=== PATIENT | female | born 1975 | race Caucasian/White ===

== ENCOUNTER → 2016-08-31 | Outpatient (CLI) | payer MEDICAID | LOC: CIMAGING 09:10 | PROVIDERS: ATTEND Family Medicine | DX: R11.2 Nausea with vomiting, unspecified (principal); R19.7 Diarrhea, unspecified; R93.3 Abnormal findings on diagnostic imaging of other parts of digestive tract; Z98.84 Bariatric surgery status | CPT/HCPCS: 74022-PO; 80053-PO; 82150-PO; 85025-PO ==

== ENCOUNTER 2017-04-12 14:34 | Emergency (ER) | payer MEDICAID ==
[2017-04-12 14:47] VITALS: BP 112/79; PULSE 77; RESP 18; TEMP 98.2; O2SAT 95
[2017-04-12] MEDS ORDERED: DIAZEPAM 5 MG TAB PO ONE (14:51)
--- NOTE | 2017-04-12 14:54 | EDPHY ---
H & P Time Seen by Provider: 04/12/17 14:38 HPI/ROS: 42-year-old female presents complaining of left lower back pain that began this morning. No fevers no chills no nausea vomiting diarrhea . No loss of bowel or bladder control. No numbness or tingling in extremities. No dysuria ROS as per hpi gen no fever, chills, fatigue ENT no sore throat, no ear pain, no uri sx cardiac, no chest pain, no edema resp no cough, no sob gi no nausea, no vomiting, no abdominal pain, no diarrhea no dysuria no hematuria no vaginal discharge MSK positive left lumbar myalgia, no joint pain, no falls no recent injuries Neuro no headache, no paresthesias no seizures Psych no HI no SI Heme no easy bleeding, no easy bruising Endocrine no polyuria no polydipsia Past Medical/Surgical History: Migraines Obesity Chronic back pain Smoking Status: Former smoker Physical Exam: 42-year-old female alert and oriented in moderate distress secondary to left lower back pain, worse with movement Vital signs stable, afebrile, nontoxic appearance Patient was able to ambulate to the room without difficulty Atraumatic normocephalic Extraocular muscles intact, anicteric Neck supple no adenopathy, Lungs clear to auscultation bilaterally, Heart regular rate and rhythm without murmur rub or gallop Abdomen obese bowel sounds present soft nontender Back no step-offs, no rash no ecchymoses no CVA tenderness positive left lumbar paraspinal tenderness, no midline spinal tenderness Negative left leg straight leg raise Extremities no cyanosis clubbing or edema DTRs intact, sensation intact Constitutional: Initial Vital Signs Temperature (C) 36.8 C 04/12/17 14:44 Heart Rate 77 04/12/17 14:44 Respiratory Rate 18 04/12/17 14:44 Blood Pressure 112/79 04/12/17 14:44 O2 Sat (%) 95 04/12/17 14:44 O2 Delivery Mode Room Air Allergies/Adverse Reactions: eletriptan HBr [From Relpax] Allergy (Severe, Verified 04/12/17 14:44) CHEST TIGHTNESS.NERVOUS naproxen [From Naprosyn] Allergy (Severe, Verified 04/12/17 14:44) BODY TREMMORS topiramate [From Topamax] Allergy (Severe, Verified 04/12/17 14:44) CHEST TIGHTNESS/NERVOUS latex [Latex] Allergy (Mild, Verified 04/12/17 14:44) Rash rizatriptan benzoate [From Maxalt] Allergy (Verified 04/12/17 14:44) sumatriptan [From Imitrex] Allergy (Verified 04/12/17 14:44) sumatriptan succinate [From Imitrex] Allergy (Verified 04/12/17 14:44) Home Medications: Medication Instructions Recorded Codeine/Butalbital/ASA/Caffein 1 - 2 each PO Q4 PRN 04/24/13 [Ascomp with Codeine Capsule] Multivitamins [Multivitamin (*)] 1 each PO DAILY 04/24/13 Sertraline HCl [Zoloft 100mg (*)] 100 mg PO BID 04/24/13 buPROPion SR [Wellbutrin 150mg SR 150 mg PO BID 04/24/13 (*)] Cholecalciferol (Vitamin D3) 5,000 unit PO DAILY 05/17/13 [Dialyvite Vitamin D] Amitriptyline HCl [Elavil] 25 mg PO HS 02/17/14 Ibuprofen [Motrin (*)] 800 mg PO Q8 PRN 02/17/14 Ondansetron HCl [Zofran] 4 mg PO TID PRN 02/17/14 QUEtiapine FUMARATE [Seroquel 25 25 mg PO HS 02/17/14 mg (*)] valACYclovir [Valtrex (*)] 500 mg PO BID PRN 02/17/14 acetaZOLAMIDE [Diamox] 1,000 mg PO BID #60 tab 03/05/14 Calcium Carbonate [Tums 500MG (*)] 500 mg PO DAILY PRN 03/31/14 LORazepam [Ativan (*)] 0.5 - 1 mg PO Q8 PRN #30 tab 04/06/14 clonazePAM [Klonopin (*)] 0.5 mg PO BID PRN #60 tab 04/06/14 Cyclobenzaprine [Cyclobenzaprine 5 mg PO DAILY PRN 05/04/14 HCl] oxyCODONE CR [Oxycontin] 10 mg PO BID PRN 05/04/14 Frovatriptan Succinate [Frova] 2.5 mg PO DAILY PRN 05/25/14 HYDROmorphone HCL [Dilaudid 2 mg 2 - 4 mg PO Q4 PRN #10 tab 05/27/14 (*)] Dicyclomine [Bentyl 10 MG (RX)] 10 - 20 mg PO QID PRN #30 cap 08/13/14 Ondansetron Odt [Zofran Odt] 4 - 8 mg PO Q4PRN PRN #4 tab 08/13/14 Diazepam [Valium 5 MG (*)] 5 mg PO TID PRN #15 tab 04/12/17 Medical Decision Making ED Course/Re-evaluation: Patient seen and evaluated for left lumbar back pain Impression Lumbar back strain, left lumbar muscle spasm Plan Diazepam 10 mg p.o. now Discharge home with diazepam 5 mg p.o. three times daily p.r.n. muscle spasm Follow-up with PCP next week. Return emergently if you developed fever, severe pain or weakness and/or difficulty urinating Differential Diagnosis: Differential diagnosis considered but not limited to: Urinary tract infection, pyelonephritis, disc herniation, muscle spasm, muscle strain, acute on chronic low back pain - Data Points Medications Given: Discontinued Medications Diazepam (Valium) 10 mg PO EDNOW ONE Stop: 04/12/17 14:52 Last Admin: 04/12/17 14:55 Dose: 10 mg Departure - Departure Disposition: Home, Routine, Self-Care Clinical Impression: Left lumbar pain Condition: Good Instructions: Low Back Strain (ED), Acute Low Back Pain (ED) Referrals: Sherice May MD [Primary Care Provider] - As per Instructions Prescriptions: Diazepam [Valium 5 MG (*)] 5 mg PO TID PRN #15 tab PRN Reason: Spasms
== END 2017-04-12 15:11 | disposition home or self-care (01) ==
LOC: CED 14:34
DX: M54.5 Low back pain (principal); Z87.891 Personal history of nicotine dependence; Z91.040 Latex allergy status

== ENCOUNTER 2017-08-28 12:04 | Emergency (ER) | payer MEDICAID ==
[2017-08-28] MEDS ORDERED: NS 1,000 ML IV ONE (12:44)
[2017-08-28] MEDS ORDERED: ONDANSETRON 4 MG/2 ML VIAL IVP ONE (12:45)
[2017-08-28] MEDS ORDERED: ALBUTEROL 3 ML DEYVIAL IH ONE (12:46)
[2017-08-28 13:08] LABS: PLATELET COUNT 189 10^3/uL (150-400)
--- NOTE | 2017-08-28 13:33 | EDPHY ---
H & P Time Seen by Provider: 08/28/17 12:30 HPI/ROS: This patient complains of cough productive of green sputum this started 3 days prior to arrival. She reports mild dyspnea associated with this. She was seen by her primary care physician yesterday and prescribed Robitussin with codeine cough suppressant for diagnosis of URI with cough. The patient complains of associated diarrhea for 2 weeks described as for or so episodes a day of loose stools and her symptoms are also company by onset of vomiting that is independent of her coughing over the past 48 hr. She reports that she is unable to tolerate p.o. Fluids now other than occasional small amounts of water and no p. O. Food intake over the past 24 hr. She has associated subjective fevers. She reports that she had a negative influenza swab but her primary care physician's office ROS: Subjective fevers and fatigue. No other constitutional symptoms HEENT: Positive nasal congestion. No sore throat. No ear pain. Neuro: No generalized headache. No confusion. No focal symptoms Pulmonary: No hemoptysis. No pleuritic pain. No respiratory distress. She feels there is rattle in her chest. Cardiovascular: No heart palpitations. No leg swelling or pain. GI: No abdominal pain. No hematemesis. No bloody stools. : No urinary symptoms Integumentary: No rash Complete review of symptoms is otherwise negative. Past Medical/Surgical History: Notable for: Pneumothorax Pneumonia Exercise-induced asthma Social History: She denies drug use. Smoking Status: Former smoker Physical Exam: General Appearance: Alert, no distress. Eyes: Pupils equal and round no pallor or injection. ENT, Mouth: Mucous membranes moist. Hoarse voice. Respiratory: Mild expiratory wheeze bilaterally. No rales or rhonchi appreciated. Cardiovascular: Regular rate and rhythm. No murmur gallop rub. Gastrointestinal: Abdomen is soft and nontender, no masses, bowel sounds normal. Neurological: GCS 15. Skin: Warm and dry, no rashes. Musculoskeletal: Neck is supple nontender. Extremities are symmetrical, full range of motion. Psychiatric: Flat affect. Otherwise normal DIFFERENTIAL DIAGNOSIS: After history and physical exam differential diagnosis was considered for laryngitis, bronchitis, pneumonia, viral gastroenteritis, Constitutional: Initial Vital Signs Temperature (C) 36.9 C 08/28/17 12:13 Heart Rate 60 08/28/17 12:13 Respiratory Rate 18 05/15/18 12:13 Blood Pressure 122/81 H 08/28/17 12:13 O2 Sat (%) 94 08/28/17 12:13 O2 Delivery Mode Room Air Allergies/Adverse Reactions: eletriptan HBr [From Relpax] Allergy (Severe, Verified 08/28/17 12:12) CHEST TIGHTNESS.NERVOUS naproxen [From Naprosyn] Allergy (Severe, Verified 08/28/17 12:12) BODY TREMMORS topiramate [From Topamax] Allergy (Severe, Verified 08/28/17 12:12) CHEST TIGHTNESS/NERVOUS latex [Latex] Allergy (Mild, Verified 08/28/17 12:12) Rash rizatriptan benzoate [From Maxalt] Allergy (Verified 08/28/17 12:12) sumatriptan [From Imitrex] Allergy (Verified 08/28/17 12:12) sumatriptan succinate [From Imitrex] Allergy (Verified 08/28/17 12:12) Home Medications: Medication Instructions Recorded Codeine/Butalbital/ASA/Caffein 1 - 2 each PO Q4 PRN 04/24/13 [Ascomp with Codeine Capsule] Multivitamins [Multivitamin (*)] 1 each PO DAILY 04/24/13 Sertraline HCl [Zoloft 100mg (*)] 100 mg PO BID 04/24/13 buPROPion SR [Wellbutrin 150mg SR 150 mg PO BID 04/24/13 (*)] Cholecalciferol (Vitamin D3) 5,000 unit PO DAILY 05/17/13 [Dialyvite Vitamin D] Amitriptyline HCl [Elavil] 25 mg PO HS 02/17/14 Ibuprofen [Motrin (*)] 800 mg PO Q8 PRN 02/17/14 Ondansetron HCl [Zofran] 4 mg PO TID PRN 02/17/14 QUEtiapine FUMARATE [Seroquel 25 25 mg PO HS 02/17/14 mg (*)] valACYclovir [Valtrex (*)] 500 mg PO BID PRN 02/17/14 acetaZOLAMIDE [Diamox] 1,000 mg PO BID #60 tab 03/05/14 Calcium Carbonate [Tums 500MG (*)] 500 mg PO DAILY PRN 03/31/14 LORazepam [Ativan (*)] 0.5 - 1 mg PO Q8 PRN #30 tab 04/06/14 clonazePAM [Klonopin (*)] 0.5 mg PO BID PRN #60 tab 04/06/14 Cyclobenzaprine [Cyclobenzaprine 5 mg PO DAILY PRN 05/04/14 HCl] oxyCODONE CR [Oxycontin] 10 mg PO BID PRN 05/04/14 Frovatriptan Succinate [Frova] 2.5 mg PO DAILY PRN 05/25/14 HYDROmorphone HCL [Dilaudid 2 mg 2 - 4 mg PO Q4 PRN #10 tab 05/27/14 (*)] Dicyclomine [Bentyl 10 MG (RX)] 10 - 20 mg PO QID PRN #30 cap 08/13/14 Ondansetron Odt [Zofran Odt] 4 - 8 mg PO Q4PRN PRN #4 tab 08/13/14 Diazepam [Valium 5 MG (*)] 5 mg PO TID PRN #15 tab 04/12/17 Albuterol Hfa Anes Only [Proair 2 puffs IH Q4 PRN #1 mdi 08/28/17 Hfa Icu (*)] Fluticasone Hfa 220 Mcg [Flovent 2 puffs IH DAILY #1 mdi 08/28/17 220 MCG Hfa MDI (*)] Ondansetron Odt [Zofran Odt] 4 - 8 mg PO Q4PRN PRN #4 tab 08/28/17 Promethazine HCl [Phenergan 25mg 25 mg PO Q6 PRN #4 tab 08/28/17 (*)] MDM/Departure - MDM Diagnostics: Two view chest x-ray: Right TECHNICAL SUPPORT TECHNICIAN shunt without acute cardiopulmonary abnormalities by my interpretation CBC is normal I-STAT chemistries with potassium 3.2 otherwise normal Imaging Results: Two view chest x-ray: TECHNICAL SUPPORT TECHNICIAN shunt present. No other acute abnormalities by my interpretation. I compared this to a prior x-ray with similar findings from 2016 Imaging: I viewed and interpreted images myself Medications Given: Discontinued Medications Albuterol (Proventil Neb) 3 ml IH EDNOW ONE Stop: 08/28/17 12:47 Last Admin: 08/28/17 13:07 Dose: 3 ml Sodium Chloride (Ns) 1,000 mls @ 0 mls/hr IV ONCE ONE; Wide Open PRN Reason: Protocol Stop: 08/28/17 12:45 Last Admin: 08/28/17 13:07 Dose: 1,000 mls Metoclopramide HCl (Reglan Injection) 5 mg IVP EDNOW ONE Stop: 08/28/17 14:08 Last Admin: 08/28/17 14:15 Dose: 5 mg Ondansetron HCl (Zofran) 4 mg IVP EDNOW ONE Stop: 08/28/17 12:46 Last Admin: 08/28/17 13:07 Dose: 4 mg ED Course/Re-evaluation: Course: Albuterol neb with improvement in symptoms-decreased frequency of cough and resolution of wheezing. Zofran IV with incomplete relief of nausea followed by Reglan with further relief. Patient then tolerated p.o. Intake without emesis. Discussion: Patient presents with findings consistent with viral URI with mild reactive airway disease or asthma versus viral bronchitis with wheezing complicated by vomiting. She improved with treatment. We ruled out pneumonia. No other red flag findings. Patient will proceed home with albuterol MDI, Flovent and Zofran IV Ts with Phenergan suppositories as a backup for any nausea or vomiting unrelieved by the Zofran. She understands the need to return emergency department should she develop any significant worsening of symptoms despite treatment plan. - Depart Disposition: Home, Routine, Self-Care Clinical Impression: Viral bronchitis, Viral laryngitis, Vomiting Condition: Good Instructions: Asthma (ED), Laryngitis (ED), Acute Nausea and Vomiting (ED) Additional Instructions: Diagnosis: 1. Viral laryngitis, viral bronchitis 2. History of asthma 3. Vomiting Plan: Drink plenty fluids Humidifier The Zofran under the tongue or Phenergan suppository for nausea vomiting if needed Albuterol inhaler with spacer for cough, wheeze or shortness of breath Flovent steroid inhaler in addition as prescribed Follow up with primary care physician for any ongoing symptoms Return to the ED for any significant worsening of her symptoms despite treatment plan Prescriptions: Albuterol Hfa Anes Only [Proair Hfa Icu (*)] 2 puffs IH Q4 PRN #1 mdi PRN Reason: Wheezing Fluticasone Hfa 220 Mcg [Flovent 220 MCG Hfa MDI (*)] 2 puffs IH DAILY #1 mdi Ondansetron Odt [Zofran Odt] 4 - 8 mg PO Q4PRN PRN #4 tab PRN Reason: Vomiting Promethazine HCl [Phenergan 25mg (*)] 25 mg PO Q6 PRN #4 tab PRN Reason: vomiting Referrals: Adan Hernandez DO [Primary Care Provider] - As per Instructions
[2017-08-28] MEDS ORDERED: METOCLOPRAMIDE 10 MG/2 ML VIAL IVP ONE (14:07)
[2017-08-28 14:17] VITALS: BP 113/58
== END 2017-08-28 14:40 | disposition home or self-care (01) ==
LOC: SUPCPDRO 12:04 → CED 12:04
DX: J20.8 Acute bronchitis due to other specified organisms (principal); B97.89 Other viral agents as the cause of diseases classified elsewhere; J04.0 Acute laryngitis; R11.10 Vomiting, unspecified; J45.909 Unspecified asthma, uncomplicated; E86.9 Volume depletion, unspecified; Z87.891 Personal history of nicotine dependence; Z91.040 Latex allergy status
CPT/HCPCS: 71046-PO; 82947-QW; 85025-PO; 96374; J2405; J2765; J7613

== ENCOUNTER 2017-10-03 21:25 | Emergency (ER) | payer MEDICAID ==
[2017-10-03] MEDS ORDERED: ONDANSETRON 4 MG/2 ML VIAL ONE (21:58)
[2017-10-03] MEDS ORDERED: NS 1,000 ML IV ONE ×2 (21:59→22:07)
[2017-10-03] MEDS ORDERED: ONDANSETRON 4 MG/2 ML VIAL IVP ONE (21:59)
--- NOTE | 2017-10-03 22:10 | EDPHY ---
H & P Stated Complaint: abdominal pain,vomiting for 3 days,dizziness Time Seen by Provider: 10/03/17 21:30 HPI/ROS: 42 yo f presents c/o diffuse abdominal pain associated with nausea, vomiting , saw her pcp this afternoon who felt this maybe anxiety and added seroquel to her current medications, pt states she woke up an hour ago in vomit, diarrhea. She had taken dilaudid and klonopin this afternoon. Pt with hx of multiple prior abdominal surgeries including cholecystectomy, tubal ligation, gastric bypass. Review of systems As per HPI General no fever no chills no weakness HEENT no eye pain no eye discharge. No eye redness, no sore throat Respiratory no cough, no shortness of breath Cardiac no chest pain, no peripheral edema GI positive abdominal pain positive nausea positive vomiting no flank pain, no hematuria, no dysuria Musculoskeletal no myalgias, no joint pain Heme no easy bruising, no easy bleeding Endo no polyuria, no polydipsia Skin no rashes, no pruritus Neuro no syncope, no dizziness, no headaches Psych is no suicidal ideation, no homicidal ideation Source: Patient Exam Limitations: No limitations - Personal History LMP (Females 10-55): Post Menopausal Current Tetanus Diphtheria and Acellular Pertussis (TDAP): Yes Tetanus Vaccine Date: 2007 - Medical/Surgical History Hx Asthma: Yes Hx Chronic Respiratory Disease: No Hx Diabetes: No Hx Cardiac Disease: No Hx Renal Disease: Yes Hx Cirrhosis: No Hx Alcoholism: No Hx HIV/AIDS: No Hx Splenectomy or Spleen Trauma: No Other PMH: Pseudotumor cerebri, Migraine, uterine ablation, depression, anxiety , , kaushal, tubal ligation, gastric bypass, mass left adrenal - Family History Significant Family History: No pertinent family hx - Social History Smoking Status: Former smoker Alcohol Use: None Drug Use: None - Physical Exam Exam: 42-year-old female alert and oriented no acute distress nontoxic appearance, afebrile HEENT atraumatic normocephalic, extraocular muscles intact, anicteric Oropharynx negative for erythema negative exudate, tolerating her own secretions , mucosa dry Neck supple no meningismus Lungs clear to auscultation bilaterally Heart regular rate and rhythm without murmur rub or gallop Abdomen nondistended bowel sounds quiet, soft no guarding no rebound Back no CVA tenderness, no step-offs, no spinal tenderness Extremities no cyanosis clubbing or edema Neuro alert and oriented, no focal deficits Constitutional: Initial Vital Signs Temperature (C) 36.3 C 10/03/17 21:41 Heart Rate 119 H 18 21:41 Respiratory Rate 14 18 21:41 Blood Pressure 115/69 10/03/17 21:41 O2 Sat (%) 93 18 21:41 O2 Delivery Mode Room Air O2 (L/minute) 2 Allergies/Adverse Reactions: eletriptan HBr [From Relpax] Allergy (Severe, Verified 10/03/17 21:36) CHEST TIGHTNESS.NERVOUS naproxen [From Naprosyn] Allergy (Severe, Verified 10/03/17 21:36) BODY TREMMORS topiramate [From Topamax] Allergy (Severe, Verified 10/03/17 21:36) CHEST TIGHTNESS/NERVOUS latex [Latex] Allergy (Mild, Verified 10/03/17 21:36) Rash rizatriptan benzoate [From Maxalt] Allergy (Verified 10/03/17 21:36) sumatriptan [From Imitrex] Allergy (Verified 10/03/17 21:36) sumatriptan succinate [From Imitrex] Allergy (Verified 10/03/17 21:36) Home Medications: Medication Instructions Recorded Codeine/Butalbital/ASA/Caffein 1 - 2 each PO Q4 PRN 04/24/13 [Ascomp with Codeine Capsule] Sertraline HCl [Zoloft 100mg (*)] 100 mg PO BID 04/24/13 buPROPion SR [Wellbutrin 150mg SR 150 mg PO BID 04/24/13 (*)] Ibuprofen [Motrin (*)] 800 mg PO Q8 PRN 02/17/14 QUEtiapine FUMARATE [Seroquel 25 25 mg PO HS 02/17/14 mg (*)] acetaZOLAMIDE [Diamox] 1,000 mg PO BID #60 tab 03/05/14 clonazePAM [Klonopin (*)] 0.5 mg PO BID PRN #60 tab 04/06/14 HYDROmorphone HCL [Dilaudid 2 mg 2 - 4 mg PO Q4 PRN #10 tab 05/27/14 (*)] Dicyclomine [Bentyl 10 MG (RX)] 10 - 20 mg PO QID PRN #30 cap 08/13/14 Ondansetron Odt [Zofran Odt] 4 - 8 mg PO Q4PRN PRN #4 tab 08/13/14 Albuterol Hfa Anes Only [Proair 2 puffs IH Q4 PRN #1 mdi 08/28/17 Hfa Icu (*)] Fluticasone Hfa 220 Mcg [Flovent 2 puffs IH DAILY #1 mdi 08/28/17 220 MCG Hfa MDI (*)] Ondansetron Odt [Zofran Odt] 4 - 8 mg PO Q4PRN PRN #4 tab 08/28/17 Promethazine HCl [Phenergan 25mg 25 mg PO Q6 PRN #4 tab 08/28/17 (*)] Medical Decision Making ED Course/Re-evaluation: Patient seen and evaluated for abdominal pain associated with nausea vomiting and loose stools. IV established 2 L normal saline given Ondansetron 4 mg IV push also given Haldol 2.5 mg IVP and Morphine 4 mg IVP for crampy abdominal pain, ongoing nausea Lab sent WBC wnl Lactic acid normal lipase nml CT Abdomen negative for surgical pathology consistent with enteritis Pt feeling markedly improved. Impression gastroenteritis plan dc home f/u pcp Differential Diagnosis: Differential diagnosis considered but not limited to: Appendicitis, gastroenteritis, constipation, pancreatitis, small-bowel obstruction, enteritis - Data Points Laboratory Results: Laboratory Results 10/03/17 22:00 10/03/17 10/03/17 10/03/17 22:10 22:09 22:00 WBC RBC Hgb Hct MCV MCH MCHC RDW Plt Count MPV Neut % (Auto) Lymph % (Auto) [place] % (Auto) Eos % (Auto) Baso % (Auto) Nucleat RBC Rel Count Absolute Neuts (auto) Absolute Lymphs (auto) Absolute Monos (auto) Absolute Eos (auto) Absolute Basos (auto) Absolute Nucleated RBC Immature Gran % Immature Gran # RBC/WBC/PLT Morphology Platelet Estimate POC Sodium 141 mEq/L mEq/L (135-145) POC Potassium 4.1 mEq/L mEq/L (3.3-5.0) POC Chloride 111.0 mEq/L H mEq/L (97-110) POC Total CO2 19 mEq/L L mEq/L (22-31) POC BUN 10 mg/dL mg/dL (7-23) POC Creatinine 0.9 mg/dL mg/dL (0.6-1.0) POC Glucose 126 mg/dL H mg/dL (70-100) POC Lactic Acid [place] 0.9 mmol/L mmol/L (0.7-2.1) POC Calcium 8.4 mg/dL L mg/dL (8.5-10.4) POC Total Bilirubin 0.4 mg/dL mg/dL (0.1-1.4) POC AST 174 IU/L H IU/L (14-46) POC ALT 92 IU/L H IU/L (9-52) POC Alk Phosphatase 95 IU/L IU/L (38-126) POC Total Protein 7.1 g/dL g/dL (6.3-8.2) POC Albumin 3.6 g/dL g/dL (3.5-5.0) Lipase 179 IU/L IU/L (23-300) 10/03/17 22:00 WBC 9.06 10^3/uL 10^3/uL (3.80-9.50) RBC 5.22 10^6/uL 10^6/uL (4.18-5.33) Hgb 14.6 g/dL g/dL (12.6-16.3) Hct 46.7 % % (38.0-47.0) MCV 89.5 fL fL (81.5-99.8) MCH 28.0 pg pg (27.9-34.1) MCHC 31.3 g/dL L g/dL (32.4-36.7) RDW 15.1 % % (11.5-15.2) Plt Count 206 10^3/uL 10^3/uL (150-400) MPV 10.9 fL fL (8.7-11.7) Neut % (Auto) 91.6 % H % (39.3-74.2) Lymph % (Auto) 2.0 % L % (15.0-45.0) [place] % (Auto) 5.4 % % (4.5-13.0) Eos % (Auto) 0.7 % % (0.6-7.6) Baso % (Auto) 0.1 % L % (0.3-1.7) Nucleat RBC Rel Count 0.0 % % (0.0-0.2) Absolute Neuts (auto) 8.30 10^3/uL H 10^3/uL (1.70-6.50) Absolute Lymphs (auto) 0.18 10^3/uL L 10^3/uL (1.00-3.00) Absolute Monos (auto) 0.49 10^3/uL 10^3/uL (0.30-0.80) Absolute Eos (auto) 0.06 10^3/uL 10^3/uL (0.03-0.40) Absolute Basos (auto) 0.01 10^3/uL L 10^3/uL (0.02-0.10) Absolute Nucleated RBC 0.00 10^3/uL 10^3/uL (0-0.01) Immature Gran % 0.2 % % (0.0-1.1) Immature Gran # 0.02 10^3/uL 10^3/uL (0.00-0.10) RBC/WBC/PLT Morphology TNP Platelet Estimate TNP POC Sodium POC Potassium POC Chloride POC Total CO2 POC BUN POC Creatinine POC Glucose POC Lactic Acid [place] POC Calcium POC Total Bilirubin POC AST POC ALT POC Alk Phosphatase POC Total Protein POC Albumin Lipase Medications Given: Discontinued Medications Haloperidol Lactate (Haldol Injection) 2.5 mg IVP EDNOW ONE Stop: 10/03/17 23:52 Last Admin: 10/03/17 23:59 Dose: 2.5 mg Sodium Chloride (Ns) 1,000 mls @ 0 mls/hr IV ONCE ONE PRN Reason: Wide Open Stop: 10/03/17 22:00 Last Admin: 10/03/17 22:05 Dose: 1,000 mls Sodium Chloride (Ns) 1,000 mls @ 0 mls/hr IV ONCE ONE PRN Reason: Wide Open Stop: 10/03/17 22:08 Last Admin: 10/03/17 22:50 Dose: 1,000 mls Morphine Sulfate (Morphine) 4 mg IVP EDNOW ONE Stop: 10/03/17 23:53 Last Admin: 10/04/17 00:02 Dose: 4 mg Ondansetron HCl (Zofran) 4 mg IVP EDNOW ONE Stop: 10/03/17 22:00 Last Admin: 10/03/17 22:01 Dose: 4 mg Point of Care Test Results: Chemistry 10/03/17 22:09 POC Sodium 141 mEq/L mEq/L (135-145) POC Potassium 4.1 mEq/L mEq/L (3.3-5.0) POC Chloride 111.0 mEq/L H mEq/L (97-110) POC Total CO2 19 mEq/L L mEq/L (22-31) POC BUN 10 mg/dL mg/dL (7-23) POC Creatinine 0.9 mg/dL mg/dL (0.6-1.0) POC Glucose 126 mg/dL H mg/dL (70-100) POC Calcium 8.4 mg/dL L mg/dL (8.5-10.4) POC Total Bilirubin 0.4 mg/dL mg/dL (0.1-1.4) POC AST 174 IU/L H IU/L (14-46) POC ALT 92 IU/L H IU/L (9-52) POC Alk Phosphatase 95 IU/L IU/L (38-126) POC Total Protein 7.1 g/dL g/dL (6.3-8.2) POC Albumin 3.6 g/dL g/dL (3.5-5.0) Blood Gas/Lactic Acid-Venous 10/03/17 22:10 POC Lactic Acid [place] 0.9 mmol/L mmol/L (0.7-2.1) Urine Collection Date 10/03/17 Collection Time 23:40 HCG Results Negative Departure - Departure Disposition: Home, Routine, Self-Care Clinical Impression: Acute gastroenteritis Condition: Good Instructions: Gastroenteritis (ED) Referrals: Patient,NotPresent [Primary Care Provider] - As per Instructions
[2017-10-03 23:08] LABS: PLATELET COUNT 206 10^3/uL (150-400)
[2017-10-03] MEDS ORDERED: HALOPERIDOL LACT 5 MG/ML INJ IVP ONE (23:51)
[2017-10-03] MEDS ORDERED: IOPAMIDOL (ISOVUE-300) 100 ML BTL ONE (23:59)
[2017-10-04 01:28] VITALS: BP 128/67
== END 2017-10-04 01:47 | disposition home or self-care (01) ==
LOC: CED 21:25
DX: K52.9 Noninfective gastroenteritis and colitis, unspecified (principal); J45.909 Unspecified asthma, uncomplicated; Z87.891 Personal history of nicotine dependence; Z98.51 Tubal ligation status
CPT/HCPCS: 74177-PO; 80053-PO; 83605-PO; 96374; J1630; J2270; J2405; Q9967

== ENCOUNTER → 2018-03-22 | Outpatient (CLI) | payer MEDICAID | LOC: CLAB 12:06 → EDSTATUS 12:08 → CIMAGING 12:08 | PROVIDERS: ATTEND Family Medicine | DX: R91.1 Solitary pulmonary nodule (principal); R05 Cough; R53.1 Weakness; Z90.49 Acquired absence of other specified parts of digestive tract | CPT/HCPCS: 71046-PO ==

== ENCOUNTER → 2018-09-25 | Outpatient (CLI) | payer MEDICAID | LOC: CIMAGING 15:35 ==